=== PATIENT | female | born 1955 | race Caucasian/White ===

== ENCOUNTER 2018-11-04 10:45 | Inpatient (IN) | payer OTHER ==
[2018-10-24 09:17] LABS: ABSOLUTE BASOPHILS 0.1 thou/uL (0.0-0.2); ABSOLUTE EOSINOPHILS 0.3 thou/uL (0.0-0.7); ABSOLUTE LYMPHOCYTES 2.3 thou/uL (0.8-5.3); ABSOLUTE MONOCYTES 0.5 thou/uL (0.0-1.2); ABSOLUTE NEUTROPHILS 3.3 thou/uL (1.6-8.1); BASOPHILS 1.2 %; HEMATOCRIT 40.5 % (37.0-47.0); HEMOGLOBIN 13.3 gm/dL (12.0-15.0); LYMPHOCYTES 35.6 %; MCH 27.2 pg (26.0-34.0); MCHC 32.8 g/dL (28.0-37.0); MCV 82.7 fL (80.0-100.0); MONOCYTES 8.1 %; MPV 8.2 fl. (7.2-11.1); NUCLEATED RBCS 0 /100WBC; PLATELET COUNT* 306 thou/uL (150-400); POLYS 51.1 %; RDW-CV 14.9 % (10.5-14.5); WBC 6.4 thou/uL (4.0-11.0)
[2018-10-24 09:39] LABS: APTT 27.3 Seconds (25.0-31.3); PROTIME 10.3 Seconds (9.20-11.50)
[2018-10-24 10:00] LABS: ALBUMIN 3.6 g/dL (3.4-5.0); CALCIUM 9.1 mg/dL (8.5-10.1); CREATININE 0.8 mg/dL (0.6-1.3); POTASSIUM 4.2 mmol/L (3.5-5.1); TOTAL BILIRUBIN 0.5 mg/dL (<0.1-1.0); TOTAL PROTEIN 8.2 g/dL (6.4-8.2)
[2018-10-24 10:50] LABS: ESR (SEDRATE) 37 mm/hr (0-30)
--- NOTE | 2018-10-24 13:22 | EKG ---
[place] [address] ELECTROCARDIOGRAM REPORT Name: ROCAEL DRAKE I Room: [facility]#: [id number] Admission: Attend Phys: Ubaldo Cook DO Discharge: Date of : 51 Report #: [id number] THIS REPORT FOR: //name// [facility] Test Date: 2018-10-24 Test Time: 09:25:35 Pat Name: ROCAEL DRAKE Department: Room: Gender: F Real Estate Transaction Coordinator: : 1955 Requested By: Ubaldo Cook Order Number: [id number] Reading MD: Mert Delgado Measurements Intervals [place] Rate: 75 P: 79 PA: 168 QRS: 79 QRSD: 90 T: 59 QT: 391 QTc: 437 Interpretive Statements Sinus rhythm Borderline repolarization abnormality No previous ECG available for comparison Electronically Signed On 10-24-2018 13:22:27 SCREW MACHINE TENDER by Mert Delgado [email or web address] <ELECTRONICALLY SIGNED> By: Mert Delgado MD, [facility] 10/24/18 1322 0925 0925 Mert Delgado MD, FAC /EPI
[2018-10-24 23:07] LABS: GLYCOHEMOGLOBIN (HGB A1C) 6.2 % (4.8-5.6)
[~2018-11-04] VITALS: Ht 157.5 cm; Wt 85.7 kg
--- NOTE | ~2018-11-04 | OP ---
[address] [address] OPERATIVE REPORT Name: ROCAEL DRAKE I Room: [address] IN ..#: [id number] Admission: 11/04/18 Attend Phys: Kelly Luke Discharge: Date of : 51 Report #: [id number] THIS REPORT FOR: //name// CC: Candis Correa DICTATED BY: Flaco Marc DO DATE OF SERVICE: 11/04/2018 PREOPERATIVE DIAGNOSIS: Left knee degenerative joint disease. POSTOPERATIVE DIAGNOSIS: Left knee degenerative joint disease. PROCEDURE PERFORMED: Left total knee arthroplasty. SURGEON: Ubaldo Cook DO. CATERING ATTENDANT: Flaco Marc DO, and Jef Bronson DO. ANESTHESIA TYPE: Spinal with intraoperative capsular block. ESTIMATED BLOOD LOSS: 75 mL. SPECIMENS REMOVED: None. COMPLICATIONS: None. TOURNIQUET TIME: 290 mmHg for a total of 68 minutes. LIST OF IMPLANTS: 1. A size 3 left bicruciate stabilized Journey II femoral component. 2. A size 3 left Journey tibial baseplate. 3. A 29 mm oval patellar component. 4. Left 13 mm posterior stabilized polyethylene insert. 5. One bag Palacos bone cement. GROSS PATHOLOGY: Upon entering the joint, significant synovial hyperemia and bone spurring noted throughout all 3 compartments, prominently eburnation bone, especially about the distal aspect of the medial femoral condyle in the backside of the patella. INDICATIONS: The patient is a pleasant 63-year-old female known with longstanding left knee pain for quite some time, failed conservative measures and radiographs displayed advanced degenerative findings. Recommendation was [facility] [address] [place] [address] OPERATIVE REPORT Name: ROCAEL DRAKE Grant Room: [address] IN [facility].#: [id number] Admission: 11/04/18 Attend Phys: Kelly Luke Discharge: Date of : 51 Report #: [id number] made for total knee arthroplasty. Again discussed alternatives, benefits, and risks, she agreed. DESCRIPTION OF PROCEDURE: The patient was met in the preoperative bay where the correct side was marked. The patient was then taken back to the operative suite and placed supine on a well-padded operative table. She was given the spinal anesthesia and then laid back supine with sedation applied. The left lower extremity had a tourniquet applied to the proximal aspect of the left thigh. This was well padded, which was ultimately insufflated for 68 minutes at 290 mmHg. The left lower extremity was then sterilely prepped and draped in normal standard fashion. Timeout was performed, in which the correct patient, side, site, procedure to be performed and antibiotics in the form of 2 grams Ancef being administered, was agreed upon by all in participation, after which the procedure was begun. Left lower extremity was elevated. The tourniquet was taken up to 290 mmHg. Standard midline incision was made. Dissection was taken down through the subcutaneous tissue to the capsule. A new inside knife was used to make the medial parapatellar arthrotomy. The parapatellar arthrotomy was made and the patella was then subluxed laterally. The medial and lateral subperiosteal sleeves were developed followed by incision of the anterior horn of the medial and lateral menisci. Knee was brought into extension. Patella everted, brought up to deep flexion. Fat pad was debrided. The ACL and PCL were dissected with sharp dissection out of the notch in their tibial insertions. The entry reamer for the femur was then utilized intramedullary. The intramedullary femoral guide was then inserted, pinned into place. The distal femoral cut was made. Next, our attention was turned to the tibia. The extramedullary tibial guide was placed and pinned into position. A 9 mm off the high side was demarcated and subsequently pinned into place. The extramedullary component was removed and the tibial cut was made with reciprocating saw. Attention was then taken back to the femoral component. This femoral sizer was pinned into place and deemed to be size 3. The 5-in-1 cutting block was pinned into place. Both anterior chamfer cuts, anterior cut and the rest of the 5 cuts were made without issue. Block removed, rongeur used to remove excess bone and osteophytes. Knee was taken into extension yielded symmetric extension gaps and easily fit a 10 mm spacing block. Knee was then taken back into flexion through electrocautery. The menisci and posterior cruciate remnants were removed with sharp dissection. The tibial tray was then sized. This feels to be the most appropriately sized at 3 with good dena-wi-ibmj fit and no intraoperative . The femoral component was put into place and the box reaming and punch portions were undertaken. Rongeur used to remove excess bone, after which the femoral box post-insert was put in. We began trialing, started with a size 12 cruciate retained insert. This did yield good medial and lateral balance, did have a slight bit of extra anterior to posterior play at 90 that we were covered with. We then trialed the posterior stabilized component. This remedied some of the anterior and posterior shuck at 90. We felt it to be more stable. After that, the patella was everted. Electrocautery used to denervate the periphery of it. The excess bone was taken and the patella reamer was used to take it to a [facility] [address] [place] [address] OPERATIVE REPORT Name: NOELLEROCAEL I Room: [address] IN ..#: [id number] Admission: 11/04/18 Attend Phys: Kelly Luke Discharge: Date of : 51 Report #: [id number] thickness of 14. The size the patella was drilled into the 3-hole position using a size 29 template. The patella was put on and the knee was taken through flexion. The patella tracked well and was also stable to all provocative maneuvers. All the trial components were removed. A posterior capsular and peripheral capsular block was administered of the standard cocktail. Pulse lavage was used to thoroughly irrigate and wash all exposed bone ends. Homans were then placed back into place with the assistance of a PCL retractor. The cement was put into the tibial canal, put into the tibia as well as the exposed face. With hand press, the tibial component was inserted and hammered into place followed by the femur with the patellar protector plate in place during femoral impaction. Patella was compressed into place as well. One last trialing window was made. The patient still yielded a small bit of more anterior to posterior plate that this was addressed by trialing with a size 13. This had an excellent assessment of stability of the anterior and posterior drawer at all arcs of motion especially at 90 as well as symmetric medial and lateral ligamentous stability. The decision was made to use a 13 final polyethylene insert. Trial tray was removed. Pulse lavage was used to wash the tibial tray and the final 13 mm polyethylene insert posterior stabilized was inserted. One final irrigation with pulse lavage was used to go through the joint, then followed by vancomycin powder administration. Knee was brought into 90 and held in that position for the remainder of the cement hardening process through the end of the capsular closure. Capsule was closed first with 1-0 Vicryl [id number] interrupted and followed by 1-0 dual needle Stratafix. PRP was injected in knee capsule. The skin was approximated with inverted smyutb-xw-aczna Monocryl, and then followed by a running stitch of 3-0 Stratafix. Incision was wiped dry clean, after which the Dermabond glue was applied and allowed to dry completely. The Mepilex was applied to the incision. All sponge and needle counts were correct x 2. The patient was awoken from general anesthesia and transferred to the postoperative patient cart, taken back to the PACU in stable condition. By: [id number] Cook DO /eleonora
[~2018-11-04 10:45] MED LIST: ASPIR 8181 MG PO; CBD OIL PO; CRESTOR10 MG PO; FIBER500 MG PO; LEVOXYL137 MCG PO; METFORMIN HCL500 MG PO; OMEGA-31000 M1 PO; TYLENOL325 MG PO; VITAMIN D5000 UNIT PO; VITAMIN E400 UNIT PO
[2018-11-04 11:30] VITALS: BP 140/71
[2018-11-04 17:00] VITALS: BP 155/61
--- NOTE | 2018-11-04 17:51 | NUR ---
PT ALERT AND ORIENTED TIMES 4. PT IS ON ROOM AIR. PULSES 2+. PT C.O SMALL AMOUNTS OF PAIN, MEDS GIVEN ORDERED. PT UP X1 ASSIST WITH WALKER AND GAIT BELT. PT HAS NOT GOTTEN OUT OF BED YET. IKER HOSE IN PLACE. SCD FEET IN PLACE. REGULAR DIET. FALL RISK PRECAUTIONS IN PLACE. HOURLY ROUNDING COMPLETED. WILL CONTINUE TO MONITOR.
[2018-11-04 19:45] VITALS: BP 152/59
--- NOTE | 2018-11-04 22:06 | NUR ---
INITAL ASSESMENT COMPLETED AT 194. PT RESTING IN BEDAT THAT TIME. O2 SAT 85% ON ROOM AIR. 2 LITERS O2 APPLIED. O2 SAT INCREASED TO 96%. AT 2014 PT ASSISTED TO BATHROOM USING GAIT BELT AND WALKER. PT ASSISTED TO RESTROOM AGAIN AT 2144. PT TAKING PO FLUIDS AND JELLO WITHOUT DIFFICULTY. CALL LIGHT IN REACH. PT USING PROPERLY. CONTINUOUS O2 SAT MONITOR ON DURING NIGHT PER POSTOPERATIVE ORDERS.
[2018-11-05 00:30] VITALS: BP 142/63
[2018-11-05 04:03] LABS: HEMATOCRIT 34.9 % (37.0-47.0); HEMOGLOBIN 11.5 gm/dL (12.0-15.0)
[2018-11-05 04:30] VITALS: BP 145/69
--- NOTE | 2018-11-05 05:36 | NUR ---
PT SLOWLY PROGRESSING TOWARD GOALS. PT UP TO RESTROOM WITH GAIT BELT AND WALKER X6 DURING SHIFT. PT AFEBRILE. HEART RATE AND BLOOD PRESSURE WITHIN NORMAL LIMITS. O2 SAT 96% ON 2 LITERS. PAIN CONTROLLED BY PO OXYCODONE. PT HAD EMISIS X1 DURING NIGHT RELIEVED BY IV ZOFRAN.
[2018-11-05 07:30] VITALS: BP 120/58
--- NOTE | 2018-11-05 15:02 | NUR ---
RECEIEVED ORDERS FOR OT. O.T. WILL DEFER TO P.T. AT THIS TIME. PLEASE WRITE NEW ORDERS IF NEEDED.
[2018-11-05 16:30] VITALS: BP 129/67
--- NOTE | 2018-11-05 17:07 | NUR ---
PT.UP IN CHAIR. PT.STATED SHE HAS BEEN VOMITING ALL DAY. CM EMPTIED APPROX 200ML FROM [facility]. SHE SAID SHE HAD BEEN ILL SINCE AFTER SURGERY. SHE SAID SHE WANTS TO GO HOME AT DISCHARGE BUT HER WORKS DURING THE DAY AND WILL NOT HAVE ANYONE TO STAY WITH HER DURING THE DAY. SHE SAID HER SISTER WAS BUT SISTERS IS IN THE HOSPITAL. SHE SAID SHE AHS NO ONE ELSE TO HELP HER. EXPLAINED SHE MAY NEED TO THINK ABOUT GOING TO A SNF. SHE SAID ' RESIDENT THOUGHT SHE MIGHT BE ABLE TO GO UPSTAIRS TO ACUTE REHAB. EXPLAINED INSURANCE CO.USUALLY WILL NOT AUTH A REHAB STAY FOR ELECTIVE JOINT SURGERIES. WILL SEE HOW SHE DOES TOMORROW IN THERAPY.
--- NOTE | 2018-11-05 18:13 | NUR ---
PT REMAINED ALERT AND ORIENTED. PT ON ROOM AIR. PT C/O PAIN AND NAUSEA. PT HAD VOMITED. PAIN MEDS AND NAUSEA MEDS GIVEN. PT RESTING IN CHAIR MOST OF DAY. FALL RISK PRECAUTIONS IN PLACE. HOURLY ROUNDING COMPLETED. WILL CONTINUE TO MONITOR.
[2018-11-05 19:30] VITALS: BP 153/61
--- NOTE | 2018-11-05 22:49 | NUR ---
INITAL ASSESMENT COMPLETED AT 1930. PT SITTING IN RECCLINER AT THAT TIME. PT DROWSEY AFTER RECIEVING IV PHERERGAN. PT ASSISTED TO RESTROOM WITH GAITBELT AND WALKER AT 1999 THEN TO BED. PT GIVEN HS MEDS AND PRN OXYCODONE. CALL LIGHT IN REACH, PT USING PROPERLY.
[2018-11-06 04:23] LABS: HEMATOCRIT 34.1 % (37.0-47.0); HEMOGLOBIN 11.2 gm/dL (12.0-15.0)
--- NOTE | 2018-11-06 05:53 | NUR ---
PT PROGRESSING TOWARD GOALS. PT'S HEART RATE AND BLOOD PRESSURE WITHIN NORMAL LIMITS. PT AFEBRILE THROUGHOUT SHIFT. PT'S O2 SAT 85% ON ROOM AIR. PT ON 2 LITERS O2 THROUGHOUT SHIFT TO MAINTAIN O2 SAT > 94%. PT UP WITH GAIT BELT AND WALKER, AMBULATING TO BATHROOM. PT'S PAIN CONTROLLED WITH PO OXYCODONE. NO NAUSEA OR VOMITING DURING HOGSHEAD PRESS OPERATOR. NO ACUTE CHANGES, WILL CONTINUE PLAN OF CARE.
[2018-11-06 07:40] VITALS: BP 140/56
--- NOTE | 2018-11-06 12:56 | NUR ---
THIS NURSE HAS REVIEWED AND AGREE WITH CHARTING BY ERIKA NAVARRO
--- NOTE | 2018-11-06 16:00 | NUR ---
SPOKE WITH PT.ABOUT DISCHARGE PLANNING. SHE REFUSES TO GO TO SNF. 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 SHE SAID IF THEY GO IN THE FRONT DOOR, ONLY HAS 3 STEPS TO GET IN. SHE HAS A RECLINER IN HER LIVING ROOM THAT SHE CAN SLEEP IN INSTEAD OF HAVING TO GO UP THE STAIR TO THE BEDROOM. IT IS COMFORTABLE, SHE HAS SLEPT IN IT BEFORE. THE BATHROOM AND KITCHEN ARE CLOSE TO THE LIVING ROOM,SO SHE WILL BE ABLE TO WALK TO EACH. HER CAN LEAVE HER FOOD FOR LUNCH AND WILL BE HOME IN THE EVENINGS. SHE HOPES TO GO HOME TOMORROW. SHE WOULD LIKE TO USE [facility] FOR HOME HEALTH. CM WILL F/U WITH PT.TOMORROW.
[2018-11-06 16:52] VITALS: BP 129/46
--- NOTE | 2018-11-06 17:10 | NUR ---
PT REMAINED A&O X 4. VITALS AND SpO2 STABLE. PAIN PAIN MEDS GIVEN ORDERED. PT TOLAERATED FOOD WITHOUT NAUSEA AND VOMITING. PT UP WITH GAIT BELT AND WALKER. CALL LIGHT WITHING REACH. FALL RISK PRECAUTION IN PLACE. HOURLY ROUNDING COMPLETED. WILL CONTINUE TO MONITOR.
[2018-11-07] VITALS: BP 138/56
--- NOTE | 2018-11-07 00:46 | NUR ---
INITAL ASSESMENT COMPLATED AT 1944. PT RESTING IN BED AT THAT TIME. PT GIVEN PRN OXYCODONE FOR REPORT OF PAIN IN LEFT KNEE AT SURGICAL SITE.
--- NOTE | 2018-11-07 07:06 | NUR ---
PT CONTINUES TO AMBULATE TO REST ROOM WITH GAIT BELT AND WALKER. PT'S PAIN CONTROLLED WITH PO MEDS. NO NAUSEA OR VOMITING DURING SHIFT. VITAL SIGNS WITHIN NORMAL LIMITS, WILL CONTINUE PLAN OF CARE.
[2018-11-07 07:50] VITALS: BP 149/58
[2018-11-07] MEDS ORDERED: ELIQUIS5 MG PO (08:28)
[2018-11-07] MEDS ORDERED: OXYCODONE HCL 55 MG PO (08:28)
--- NOTE | 2018-11-07 12:04 | NUR ---
SALES PROFESSIONAL INFORMED BY THE RN IN-CHARGE OF THE PATIENT THAT SHE WOULD LIKE TO TALK TO CM, SHE IS CONCERNED ABOUT GOING HOME AND WOULD NOW LIKE TO GO TO [facility]. D/C SENIOR DIRECTOR OF STRATEGY SPOKE TO THE PATIENT AND SHE INFORMS THAT SHE WOULD LIKE TO GO TO [facility]. D/C SENIOR DIRECTOR OF STRATEGY INFORMED THE RN IN-CHARGE OF THE PATIENT OF THIS INFO AND SHE INFORMED DR VALENZUELA. D/C SENIOR DIRECTOR OF STRATEGY CALLED AND LEFT A MESSAGE FOR PEGG WITH [facility] TO INFORM OF THE SKILLED REFERRAL AND FAXED THE PATIENT'S FACESHEET, CLINICAL INFO, AND PT NOTE. D/C SENIOR DIRECTOR OF STRATEGY INFORMED O.T. OF THE NEED TO ASSESS PATIENT AND WILL FAX O.T. NOTE TO [facility] WHEN AVAILABLE. D/C SENIOR DIRECTOR OF STRATEGY AWAIAING RETURN CALL FROM [facility] TO DISCUSS ABILITY TO ACCEPT THE PATIENT AT D/C. CM WILL REMAIN AVIALABLE TO ASSIST AND FOLLOW NEEDED.
--- NOTE | 2018-11-07 15:27 | NUR ---
D/C MUD LOGGER SPOKE TO THE PATIENT TO DISCUSS HER CONCERNS THAT SHE DOES NOT WANT TO D/C HOME AND WOULD LIKE TO GO TO [facility]. D/C MUD LOGGER SPOKE TO WILLIAN WITH ADMISSIONS AT [place] AND SHE ACCEPTS REFERRAL. WILLIAN RETURN CALL TO INFORM OF INSURANCE AUTH AND TIME OF TRANSPORT OF 1630. D/C MUD LOGGER INFORMED THE RN IN-CHARGE OF THE PATIENT OF INSURANCE APPROVAL AND TIME OF TRANSFER. RN IN AGREEMENT AND WILL INFORM THE PATIENT OF TIME OF TRANSFER. D/C MUD LOGGER FAXED [facility] PATIENTS D/C ORDERS. CM WILL REMAIN AVIALABLE TO ASSIST AND FOLLOW NEEDED.
[2018-11-07] MEDS ORDERED: CRESTOR10 MG PO (16:31)
--- NOTE | 2018-11-07 17:09 | NUR ---
PT LEFT UNIT BY WHEELCHAIR WITH FACILITY TRANSPORTER AT 1700. IV DISCHARGED. CHART COPIED. REPORT GIVEN. ALL BELINGING LEFT WITH THE PT.
== END 2018-11-07 17:00 | DRG 470 ==
LOC: M.SUR 10:45 → M.ORTHSURG 12:15 → M.SUR 12:21 → M.ORTHSURG 15:59 → M.SUR 16:05 → M.ORTHSURG 11-07 17:00
PROVIDERS: Orthopaedic Surgery; ADMIT Internal Medicine
PROC: 0SRD0J9 Replacement of Left Knee Joint with Synthetic Substitute, Cemented, Open Approach (ICD-10-PCS; principal; 2018-11-04)
DX: M17.12 Unilateral primary osteoarthritis, left knee (principal); J98.11 Atelectasis; E11.9 Type 2 diabetes mellitus without complications; E03.9 Hypothyroidism, unspecified; E78.5 Hyperlipidemia, unspecified; R09.02 Hypoxemia; Z88.8 Allergy status to other drugs, medicaments and biological substances; Z90.49 Acquired absence of other specified parts of digestive tract; Z90.710 Acquired absence of both cervix and uterus; Z79.82 Long term (current) use of aspirin; Z79.899 Other long term (current) drug therapy

== ENCOUNTER 2018-12-23 05:55 | Inpatient (IN) | payer OTHER ==
[2018-12-12 09:03] LABS: ABSOLUTE BASOPHILS 0.1 thou/uL (0.0-0.2); ABSOLUTE EOSINOPHILS 0.2 thou/uL (0.0-0.7); ABSOLUTE LYMPHOCYTES 1.8 thou/uL (0.8-5.3); ABSOLUTE MONOCYTES 0.6 thou/uL (0.0-1.2); ABSOLUTE NEUTROPHILS 4.6 thou/uL (1.6-8.1); BASOPHILS 1.4 %; EOSINOPHILS 2.3 %; HEMATOCRIT 36.8 % (37.0-47.0); HEMOGLOBIN 11.8 gm/dL (12.0-15.0); LYMPHOCYTES 24.6 %; MCH 26.4 pg (26.0-34.0); MCHC 32.1 g/dL (28.0-37.0); MCV 82.4 fL (80.0-100.0); MONOCYTES 8.5 %; MPV 7.7 fl. (7.2-11.1); NUCLEATED RBCS 0 /100WBC; PLATELET COUNT* 382 thou/uL (150-400); POLYS 63.2 %; RBC 4.47 mil/uL (4.20-5.00); RDW-CV 15.8 % (10.5-14.5); WBC 7.2 thou/uL (4.0-11.0)
[2018-12-12 09:13] LABS: ALBUMIN 3.4 g/dL (3.4-5.0); CALCIUM 8.8 mg/dL (8.5-10.1); CREATININE 0.8 mg/dL (0.6-1.3); POTASSIUM 4.2 mmol/L (3.5-5.1); TOTAL BILIRUBIN 0.4 mg/dL (<0.1-1.0); TOTAL PROTEIN 8.3 g/dL (6.4-8.2)
[2018-12-12 11:14] LABS: ESR (SEDRATE) 78 mm/hr (0-30)
[~2018-12-23] VITALS: Ht 157.5 cm; Wt 83.9 kg
[~2018-12-23 05:55] MED LIST changes: +ASPIRIN325 PO; +CRANBERRY500 M2 PO; +ELIQUIS5 MG PO; +OXYCODONE HCL 55 MG PO
[2018-12-23 07:15] VITALS: BP 132/83
[2018-12-23 12:37] VITALS: BP 156/71
--- NOTE | 2018-12-23 12:54 | NUR ---
PATIENT CAME TO THE FLOOR FROM THE OR VIA BED IN STABLE CONDITION. PATIENT HAS A CAPNO WITH 2 LITERS OF OXYGEN THROUGH NASAL CANNULA. NO COMPLAINTS OF PAIN AT THIS TIME, PATIENT IS VERY DROWSY AT THIS TIME. VITAL SIGNS ARE STABLE ON 2 LITERS OF OXYGEN. IS WITH PATIENT AT THIS TIME. ROOM ORIENTATION AND ADMISSION ASSESSMENT DONE. CALL LIGHT IS IN REACH, WILL CONTINUE TO MONITOR.
[2018-12-23 15:40] VITALS: BP 116/54
--- NOTE | 2018-12-23 17:57 | NUR ---
PATIENT IS ALERT AND ORIENTED SINCE SURGERY. PATIENT HAS BEEN SLEEPING SINCE COMING FROM SURGERY. NO COMPLAINTS OF PAIN NERVE BLOCK IS STILL WORKING WELL. VITAL SIGNS ARE STABLE ON 2 LITERS OF OXYGEN WITH CAPNO IN PLACE. PATIENT HAS BEEN IN CHAIR FOR SEVERAL HOURS. CALL LIGHT IS IN REACH, WILL CONTINUE TO MONITOR.
[2018-12-24 00:30] VITALS: BP 110/56
[2018-12-24 04:05] LABS: HEMATOCRIT 33.7 % (37.0-47.0); HEMOGLOBIN 10.6 gm/dL (12.0-15.0)
[2018-12-24 04:29] VITALS: BP 116/47
--- NOTE | 2018-12-24 05:50 | NUR ---
PATIENT HAS RESTED WELL THROUGHOUT THE NIGHT. VSS ON 2L 02 VIA NASAL CANNULA. PAIN WELL CONTROLLED WITH ORAL PAIN MEDICATION. DRESSING TO RIGHT KNEE IS C/D/I, IKER HOSE AND SCD'S IN PLACE. PATIENT IS UP WITH ASSIST X 1 WITH GAITBELT AND WALKER TO THE BATHROOM AND IS STEADY. IV IN LEFT HAND-LR @ 75ML/HR. PATIENT INSTRUCTED TO USE CALL LIGHT WHEN NEEDING ASSISTANCE. HOURLY ROUNDS MADE. WILL CONTINUE WITH PLAN OF CARE AND NURSING TO MONITOR.
[2018-12-24] MEDS ORDERED: OXYCODONE HCL 55 MG PO (07:58)
[2018-12-24] MEDS ORDERED: ELIQUIS5 MG PO (07:58)
[2018-12-24] MEDS ORDERED: CELEBREX 200 M200 M1 PO (07:58)
[2018-12-24 08:50] VITALS: BP 134/51
[2018-12-24 12:04] VITALS: BP 100/50
[2018-12-24 12:28] VITALS: BP 100/50
[2018-12-24] MEDS ORDERED: COLACE100 MG PO (12:32)
--- NOTE | 2018-12-24 14:07 | NUR ---
RECIEVED O.T. EVAL AND TX ORDERS. WILL DEFER TO P.T. AND NURSING AT THIS TIME. PLEASE ORDER FURTHER O.T. SERVICES IF NEEDED.
--- NOTE | 2018-12-24 14:23 | NUR ---
CM CALLED IN PRESCRIPTION WRITTEN FOR ERNIE TO PT'S PHARMACY[facility] IN . WILL CALL BACK FOR COPAY. SPOKE WITH PT. SHE WAS ALERT AND ORIENTED. SHE LIVES WITH HER . HE WILL BE WITH HER TO ASSIST NEEDED. SHE HAS A FRONT WHEEL WALKER AT HOME. SHE IS NORMALLY INDEPENDENT AT HOME. SHE PLANS ON DOING OUTPT.P.T.
[2018-12-24 16:13] VITALS: BP 100/50
--- NOTE | 2018-12-24 16:14 | NUR ---
PT GIVEN DISCHARGE INFORMATION, CARE NOTES, AND PRESCRIPTIONS. IV REMOVED. PT BELONGINGS GATHERED. PT DISCHARGED PT. FALL RISK PRECAUTIONS IN PLACE. HOURLY ROUNDING COMPLETED. PT LEFT VIA WHEELCHAIR WITH NURSING STAFF TO HOME WITH SPOUSE.
--- NOTE | 2018-12-26 09:42 | OP ---
[address] [address] OPERATIVE REPORT Name: NOELLEROCAEL I Room: [address]R#: [id number] Admission: 12/23/18 Attend Phys: Harjinder Garrison MD Discharge: 12/24/18 Date of : 51 Report #: [id number] THIS REPORT FOR: //name// CC: Candis Cook DICTATED BY: Jef Bronson DO DATE OF SERVICE: 12/23/2018 PREOPERATIVE DIAGNOSIS: Right knee advanced degenerative joint disease. POSTOPERATIVE DIAGNOSIS: Right knee advanced degenerative joint disease. OPERATION PERFORMED: Right total knee arthroplasty. IMPLANTS: [employer] Journey II system with the following components: 1. A size 3 posterior stabilized femoral component. 2. A size 3 tibial baseplate. 3. A size 22 mm patellar component. 4. An 11 mm Journey II articular insert. 5. Also 1 bag of Palacos bone cement. SURGEON: Ubaldo Cook DO. LEGEND MAKER: Mima Rodriguez PA-C. SECOND LEGEND MAKER: Jef Bronson DO. ESTIMATED BLOOD LOSS: 75 mL. ANTIBIOTICS: 2 grams IV Ancef given preoperatively. DRAINS: None. SPECIMENS: None. ANESTHESIA: General plus local. FLUIDS: Crystalloids. COMPLICATIONS: None. CONDITION: Stable. DISPOSITION: PACU to Med/Surg floor. [address] [place] [address] OPERATIVE REPORT Name: ROCAEL DRAKE I Room: [address]#: [id number] Admission: 12/23/18 Attend Phys: Harjinder Garrison MD Discharge: 12/24/18 Date of : 51 Report #: [id number] INDICATIONS FOR SURGERY: The patient is a pleasant 63-year-old female who had been followed in the orthopedic clinic regarding her longstanding bilateral knee pain. She underwent a left total knee arthroplasty about 6 weeks ago and has done quite well with this. She has advanced degenerative joint disease of the right knee and has failed conservative treatment with several months of activity modification, attempted weight loss, anti-inflammatory medications and intra-articular steroid injections. Therefore, we have recommended proceeding as planned today with a right total knee arthroplasty. Risks, indications, and treatment alternatives have been reviewed with the patient in detail and she has signed her informed consent. DESCRIPTION OF PROCEDURE: The patient was identified in the preoperative holding area where the right leg was marked and questions were answered. She was transferred to the operating suite and placed on the operating table in supine position where general anesthesia was then induced. A well-padded tourniquet was placed on the right proximal thigh. This was inflated for a total of 48 minutes throughout the entirety of the procedure at 295 mmHg. The right lower extremity was then sterilely prepped and draped in the usual fashion. Timeout was performed and everyone in the room was in agreement that our safety checklist had been completed. Our standard midline incision was marked out. A tourniquet was inflated. A standard midline incision was then carried down through the skin and subcutaneous tissue down to the level of capsule. A new knife was then used to make our standard medial parapatellar incision. Our subperiosteal flap was developed off the medial tibia. The patella was then everted. The knee was hyperflexed. The fat pad was excised and the premade femoral cutting guide was pinned into position and our distal femur cut was made through this guide. This was then removed and a 5-in-1 cutting block was then impacted into position and the cuts were made sequentially through the cutting block. Cutting block was then removed as were the bone pieces. Attention was then taken to the proximal tibia. The meniscal structures were removed as were the ACL and the PCL. The premade cutting block was then pinned into position and the cut was made through the capture cutting block making sure to protect our medial, lateral and posterior structures as well as the patellar tendon. The captured cutting block was removed as well as our cut tibia. At this time, the medial osteophytes were removed. The trial baseplate was pinned into position through the predrilled holes. This was checked to have appropriate rotation with a drop adriel. The slope was also appropriate. The trial femur was then impacted into position and a 9 mm insert was inserted. It was just found to have full extension and flexion; however, it was loose in both the sagittal and coronal planes in both flexion and extension. Therefore, we did upsize to an 11 mm insert and this did give us excellent stability and range of motion. Attention was taken to the patella. There were significant degenerative changes. Therefore, we did proceed with resurfacing. The [employer] reaming system was utilized down to a 14 mm thickness. This gave a [facility] [address] [place] [address] OPERATIVE REPORT Name: ROCAEL DRAKE I Room: [address] [place] M.R.#: [id number] Admission: 12/23/18 Attend Phys: Harjinder Garrison MD Discharge: 12/24/18 Date of : 51 Report #: [id number] nice flat cut surface. The patella was then sized to 29 and the patellar peg holes were drilled through the guide. A trial patellar button was then placed and placed it through full range of motion and found to be tracking appropriately. The box cut was made through the femur and the excess bone was then removed. The trial components were then removed. The tibia was prepared with the reamer followed by the keel punch through the tibial baseplate and then this was removed. All the bony cut surfaces were thoroughly irrigated. The posterior capsular structures as well as the surrounding periosteum and fat pad were injected with the anesthetic cocktail. The bone cement was mixed on the back table utilizing a bowl. The cement was then applied to the back surfaces of the components as well as within the inner stitches of the bony cut surfaces. The final components were then impacted into position beginning with the tibial component followed by the femoral component and then the patellar component. All excess bone cement was removed. With the 11 mm insert, there was excellent flexion and extension as well as stability in all planes. Therefore, we did select this was our final insert and this was swapped out for the trial component. Once again, the knee was finally checked and found to have excellent stability and range of motion. The knee was once again thoroughly irrigated. Vancomycin powder was placed within the capsule as well as the surrounding tissues. The knee was then placed in 90 degrees of flexion and the layered closure was began starting with 1-0 Vicryl on the capsular layer, the #1 Quill suture was then used to reapproximate the capsule and extensor mechanism. The subcutaneous layer was then reapproximated with 2-0 Monocryl suture in a simple interrupted buried fashion. This was followed by 3-0 subcuticular layer with Stratafix suture. Extensive skin glue was then placed over the incision. A sterile Mepilex bandage was applied followed by thigh high IKER hose. The patient was found to tolerate the procedure well and was transferred to the PACU in stable condition. Sponge and needle counts correct x 2. <ELECTRONICALLY SIGNED> By: Ubaldo Cook DO 12/26/18 [id number] Cook DO /nt
== END 2018-12-24 16:15 | disposition home or self-care (01) | DRG 470 ==
LOC: M.SUR 05:55 → M.ORTHSURG 10:56 → M.TBA 10:56 → M.SUR 11:23 → M.ORTHSURG 12:33
PROVIDERS: Orthopaedic Surgery; ADMIT Internal Medicine
PROC: 0SRC0J9 Replacement of Right Knee Joint with Synthetic Substitute, Cemented, Open Approach (ICD-10-PCS; principal; 2018-12-23)
DX: M17.11 Unilateral primary osteoarthritis, right knee (principal); E11.9 Type 2 diabetes mellitus without complications; E03.9 Hypothyroidism, unspecified; M17.12 Unilateral primary osteoarthritis, left knee; E78.5 Hyperlipidemia, unspecified; R11.0 Nausea; Z98.2 Presence of cerebrospinal fluid drainage device; Z79.899 Other long term (current) drug therapy; Z88.8 Allergy status to other drugs, medicaments and biological substances; Z90.49 Acquired absence of other specified parts of digestive tract